=== PATIENT | male | born 1955 | race Caucasian/White ===

== ENCOUNTER 2017-05-14 10:07 | Emergency (ER) | payer OTHER ==
--- NOTE | 2017-05-14 10:38 | ERNOTE ---
Medical Problem HPI - Narrative Date of Service: 05/14/17 - General Chief Complaint: General Assessment Time Seen by Provider: 05/14/17 10:25 Source: patient, RN notes reviewed Exam Limitations: no limitations - Immun/Allergies/Home Medications Allergies/Adverse Reactions: Allergies No Known Allergies Allergy (Verified 05/14/17 10:20) Home Medications: HOME MEDICATIONS Aspirin [Aspirin Chewable] 81 mg PO DAILY 05/14/17 [Last Taken Unknown] Clopidogrel Bisulfate [Plavix] 75 mg PO DAILY 05/14/17 [Last Taken Unknown] - History of Present History Narrative: 62 y/o male ambulatory to the ED for a hernia. He first noticed this approximately a year ago when he had some pain in the region that resolved after a short time without any intervention. He again had some pain about a week ago. Today, he was lifting a dryer at work when he had sudden pain and developed a bulge in his suprapubic region. He was able to push the protrusion back in with some difficulty, but unless he holds onto the area the hernia will again protrude with minimal exertion. It is not painful once it is reduced. Date (Duration): 05/14/17 Timing: intermittent Severity: moderate Review of Systems - Review of Systems Constitutional: Absent: recent illness, fever, chills EYE: Present: no symptoms reported ENT: Present: no symptoms reported Respiratory: Absent: shortness of breath, cough Cardiology: Absent: chest pain, syncope, edema Gastrointestinal/Abdominal: Absent: nausea, vomiting, diarrhea, constipation Genitourinary: Absent: frequency, dysuria, hematuria, decreased urinary output Musculoskeletal: Absent: muscle pain, joint pain Skin: Present: lumps. Absent: rash, lesions, change in color Neurological: Absent: headache, dizziness/light-headedness Endocrine: Present: no symptoms reported Hematologic/Lymphatic: Present: easy bruising, easy bleeding Psych: Present: no symptoms reported - Patient's Past Medical History Patient History - Medical: Cataracts Patient History - Cardiac/Respiratory: Myocardial Infarction Patient History - Cancer: No Hx of Cancer Patient History - Surgical Procedures: Cardiac stent Patient History - Other: None - Social History Living Situations: home Psych History: No pertinent hx Smoking Status: Current every day smoker Cigarettes Packs Per Day: 1 Alcohol Use: occasionally Drug Use: marijuana Physical Exam - Physical Exam General Appearance: Present: wd/wn, alert, mild distress, anxious Neck: Present: normal inspection, nontender, supple, full range of motion Respiratory: Present: no respiratory distress, normal breath sounds, no accessory muscle use, lungs clear Cardiovascular/Chest: Present: regular rate, rhythm, no murmur, normal peripheral pulses Gastrointestinal/Abdominal: Present: normal bowel sounds, nontender, nondistended, soft, hernia - suprapubic - reducible Extremity Exam: Present: normal inspection, normal range of motion, no edema Neurological Exam: Present: alert, oriented, normal mood/affect Skin Exam: Present: normal color, warm/dry ED Progress - Vital Signs Patient's Vital Signs:: I have reviewed the patient's vital signs. Vital Signs: Vital Signs 05/14/17 10:16 Temperature 36.6 C Pulse Rate 112 H Respiratory 12 Rate Blood Pressure 154/82 O2 Sat by Pulse 98 Oximetry - Progress/Reassessment Chief Complaint: General Assessment Progress:: Unchanged Plan - Plan Plan: Dr. Yi contacted, came to department to evaluate patient. He agrees that the patient has a reducible hernia that can be repaired on an elective basis. The patient is to contact his office to schedule follow up. 5 pound lifting restriction given for patient's work. Patient repeatedly asks for a brace or support to hold the hernia in place. I explained several times that we do not stock anything at the hospital that would serve this purpose but he could check a medical supply store. I also had to reiterate several times that this is a non-emergent condition that does not require repair today. Discussed signs of worsening condition - mainly severe pain and inability to reduce the hernia. Also instructed to avoid constipation, straining, and coughing. Patient seems to have a low understanding of the condition and instructions despite several attempts. Departure - Departure Clinical Impression: Hernia Disposition: Home Follow Up Needed Condition: Stable Instructions: Hernia, Adult, [id number] Additional Instructions: See occupational health instruction sheet Referrals: Marilou Yi MD [Staff Physician] -
[2017-05-14 11:02] VITALS: BP 152/82
== END 2017-05-14 11:30 | disposition home or self-care (01) ==
LOC: ER 10:07
DX: K42.9 Umbilical hernia without obstruction or gangrene (principal); I25.2 Old myocardial infarction; F17.200 Nicotine dependence, unspecified, uncomplicated

== ENCOUNTER 2017-05-19 08:55 | Emergency (ER) | payer SELFPAY ==
[2017-05-19] MEDS ORDERED: MORPHINE SULFATE 4 MG/ML SYRG SC ONE (09:43)
--- NOTE | 2017-05-19 09:43 | ERNOTE ---
Medical Problem HPI - General Chief Complaint: General Assessment Time Seen by Provider: 05/19/17 09:22 Source: patient Exam Limitations: no limitations - Immun/Allergies/Home Medications Immunizations: IMMUNIZATION HX Immunizations Up to Date Yes History of Influenza Vaccine No Hx Pneumococcal Vaccination No Allergies/Adverse Reactions: Allergies No Known Allergies Allergy (Verified 05/19/17 09:06) Home Medications: HOME MEDICATIONS Aspirin [Aspirin Chewable] 81 mg PO DAILY 05/14/17 [Last Taken Unknown] Clopidogrel Bisulfate [Plavix] 75 mg PO DAILY 05/14/17 [Last Taken Unknown] - History of Present History Narrative: Patient presents with a marked exacerbation of his right inguinal hernia. Patient states the pain is at least moderate if not severe in intensity and is having difficulty walking or climbing stairs because the pain. Timing: constant, getting worse Severity: severe Review of Systems - Review of Systems Constitutional: Present: See HPI EYE: Present: no symptoms reported ENT: Present: no symptoms reported Respiratory: Present: no symptoms reported Cardiology: Present: no symptoms reported Gastrointestinal/Abdominal: Present: See HPI Genitourinary: Present: no symptoms reported Musculoskeletal: Present: no symptoms reported Skin: Present: no symptoms reported Neurological: Present: no symptoms reported Endocrine: Present: no symptoms reported Hematologic/Lymphatic: Present: no symptoms reported Psych: Present: no symptoms reported - Patient's Past Medical History Patient History - Medical: Cataracts, Other - known inguinal hernia Patient History - Cardiac/Respiratory: Myocardial Infarction Patient History - Cancer: No Hx of Cancer Patient History - Surgical Procedures: Cardiac stent Patient History - Other: None - Social History Living Situations: home Abuse History: No History of abuse Psych History: No pertinent hx Smoking Status: Current some day smoker Alcohol Use: occasionally Drug Use: none - Immunizations Immunizations Up to Date: Yes Hx Pneumococcal Vaccination: No History of Influenza Vaccine: No Physical Exam - Physical Exam General Appearance: Present: wd/wn, alert, moderate distress, severe distress Head Exam: Present: normal inspection Eye Exam: Normal inspection: bilateral, PERRL: bilateral Ears, Nose, Throat: Present: normal ENT inspection, H, normal pharynx Neck: Present: normal inspection, nontender Respiratory: Present: no respiratory distress, normal breath sounds, no accessory muscle use, chest nontender, lungs clear Cardiovascular/Chest: Present: regular rate, rhythm, no murmur, normal peripheral pulses Gastrointestinal/Abdominal: Present: normal bowel sounds, nondistended, soft, no organomegaly, tenderness - profound tenderness in the right inguinal region as well as swelling down into the scrotum Rectal Exam: Present: deferred Back Exam: Present: normal inspection, normal range of motion Extremity Exam: Present: normal inspection, non-tender, no edema, normal range of motion Neurological Exam: Present: alert, oriented, normal mood/affect Skin Exam: Present: normal color, warm/dry Lymphatic Exam: Present: no adenopathy ED Progress - Vital Signs Patient's Vital Signs:: I have reviewed the patient's vital signs. Vital Signs: Vital Signs 05/19/17 09:02 Temperature 37.0 C Pulse Rate 98 Respiratory 16 Rate Blood Pressure 138/74 O2 Sat by Pulse 98 Oximetry - Progress/Reassessment Chief Complaint: General Assessment Plan - Plan Plan: Patient apparently has been appointment to see Dr. Yi tomorrow however the pain got so severe that he is unable to tolerate it anymore. I called and discussed this with Dr. Yi and as the patient's hernia reduced with Trendelenberg position he will see the patient this afternoon and discuss his options. Departure - Departure Clinical Impression: Hernia Disposition: Home self-care Condition: Good Instructions: Inguinal Hernia, Adult, [id number] Additional Instructions: Call Dr. Yi's office for an appt today, he will see you this afternoon Referrals: Marilou Yi MD [Staff Physician] -
[2017-05-19] MEDS ORDERED: MORPHINE SULFATE 4 MG/ML SYRG ONE (09:52)
[2017-05-19 11:26] VITALS: BP 133/79
== END 2017-05-19 11:25 | disposition home or self-care (01) ==
LOC: ER 08:55
DX: K40.90 Unilateral inguinal hernia, without obstruction or gangrene, not specified as recurrent (principal); F17.200 Nicotine dependence, unspecified, uncomplicated; Z95.5 Presence of coronary angioplasty implant and graft; I25.2 Old myocardial infarction

== ENCOUNTER 2017-05-20 10:09 | Day surgery (SDC) | payer OTHER ==
[~2017-05-20 10:09] MED LIST: RINGER'S SOLUTION,LACTATED 1,000 ML IV PRN; ceFAZolin SODIUM 2 GM in DEXTROSE 5 % IN WATER 50 ML IV PRN
[2017-05-20] MEDS ORDERED: RINGER'S SOLUTION,LACTATED 1,000 ML IV ONE ×2 (11:00→13:20)
[2017-05-20] MEDS ORDERED: BUPIVACAINE HCL/EPINEPHRINE 50 ML VIAL IJ ONE ×2 (13:20)
[2017-05-20] MEDS ORDERED: RINGER'S SOLUTION,LACTATED 1,000 ML IV PRN (15:10)
[2017-05-20] MEDS ORDERED: oxyCODONE HCL/ACETAMINOPHEN 1 TAB TABLET PO ONE (15:45)
[2017-05-20 17:03] VITALS: BP 124/63
--- NOTE | 2017-05-20 17:55 | OR ---
Operative Report - Dictated Report Narrative: Date of operation: 05/20/2017 Preoperative diagnosis: Right inguinal hernia Postoperative diagnosis: Large indirect right inguinal hernia Operation: Repair of right inguinal hernia (high ligation of sac with Bard mesh plug and patch) Surgeon: KAMLESH Yi MD Anesthesia: Gen. LMA Yonis Ayon CRNA Indications for procedure: The patient is a 62-year-old male who presented to the emergency room on 05/14/2017 with painful swelling in the right groin after lifting a dryer. The hernia was able to be reduced however he presented again to the ER on 05/19/2017 and was seen in the office and is scheduled for surgery today. The patient is on aspirin and Plavix for coronary artery stents. Findings: Large indirect right inguinal hernia Narrative of procedure: The patient was identified preoperatively, the surgical site was marked, and prior to the administration of anesthetic a multidisciplinary timeout was observed. The patient was placed supine, SCDs were applied, and 2 g of intravenous Ancef administered. Gen. LMA Anesthetic was administered. The patient's abdomen and genitalia were prepped with Betadine solution and the right groin isolated with 4 sterile towels. The remainder of the patient was covered with a sterile disposable drape. A transverse skin incision was made over the midportion of the right inguinal canal. This included excising a very small skin tag in the line of incision. Dissection was carried through subcutaneous tissue with electrocautery until the fascia of the external oblique aponeurosis was encountered. This was incised in the direction of its fibers down to and including the external inguinal ring. The ilioinguinal nerve was identified and protected throughout the procedure. Cord structures were encircled at the pubic tubercle, and a Janie drain placed for traction. Inspection of the inguinal floor revealed it to be sound out to the inferior epigastric vessels. Inspection of the cord revealed a large indirect hernia sac which extended into the scrotum. The sac was opened and a forefinger inserted. The sac was then dissected free from the cord structures back to the internal inguinal ring. Palpation of the inguinal floor from inside the abdomen revealed it to be fairly sound. The sac was then transfixed under direct vision with a pursestring suture of 0 Ethibond. Excess sac was amputated and submitted to pathology. The neck of the sac was then redirected superiorly using the same suture 0 Ethibond. A Bard mesh plug was placed in the inguinal floor and secured circumferentially to the pubic tubercle , along the conjoined tendon, and along the shelving border of the inguinal ligament with interrupted sutures of 0 Ethibond. The lateral border of the plug was secured with a 0 Ethibond suture between the conjoined tendon, the lateral border of the plug, and the shelving border of the inguinal ligament just medial to the cord structures. A tailored mesh patch was placed in the inguinal floor and secured circumferentially to the pubic tubercle, along the conjoined tendon, and along the shelving border of the inguinal ligament with interrupted sutures of 0 Ethibond. The wings of the patch were wrapped around the cord structures and secured laterally with additional interrupted sutures of 0 Ethibond. The new internal inguinal ring was found to be of sufficient caliber to admit cord structures without undue constriction. The wound was inspected for hemostasis, which appeared complete. The cord structures and ilioinguinal nerve were returned to an anatomic position. After receiving a correct sponge needle and instrument count attention was turned to closing the wound. The external oblique aponeurosis was approximated with a running suture of 2-0 Vicryl. Subcutaneous tissues were approximated with interrupted sutures of 2-0 chromic. The skin was secured with a running subcuticular suture of 4-0 Vicryl. The operative site was washed and dried. A dressing of Dermabond, folded 4 x 4, and Medipore tape was applied. The scrotum was checked to ensure that the testicles were in anatomic position. The operative procedure was terminated at this point. The patient tolerated the anesthetic and procedure well without complication. There was no measurable blood loss. The sac was submitted to pathology. 0.5% Marcaine with epinephrine was used for local anesthetic infiltration. The patient was transferred to the recovery room awake , extubated, and in stable condition. The patient remained stable throughout a period of postoperative observation. He was able to tolerate PO intake. His pain was controlled with po Percocet. He was able to ambulate without assistance. The dressing remained dry. History was discharged home with instructions not to lift and not to drive. He is to keep the current dressing dry and intact for 48 hours, but then may shower and change the dressing daily or as needed. The patient was given a prescription for Percocet 5/325 mg #30 1-2 po Q4-6hrs prn pain. The patient has phone numbers to call for questions or prn signs of wound infection or hematoma. A return office appointment was made for 1 week. Reviewed and electronically signed
== END 2017-05-20 10:10 | disposition home or self-care (01) ==
LOC: AMB 10:09
PROVIDERS: ATTEND Surgery
PROC: 0YU50JZ Supplement Right Inguinal Region with Synthetic Substitute, Open Approach (ICD-10-PCS; principal; 2017-05-20 11:30)
DX: K40.90 Unilateral inguinal hernia, without obstruction or gangrene, not specified as recurrent (principal); I10 Essential (primary) hypertension; E78.5 Hyperlipidemia, unspecified; I25.10 Atherosclerotic heart disease of native coronary artery without angina pectoris; J44.9 Chronic obstructive pulmonary disease, unspecified; Z87.891 Personal history of nicotine dependence; Z68.23 Body mass index [BMI] 23.0-23.9, adult